=== PATIENT | female | born 1950 | race Caucasian/White ===

== ENCOUNTER 2020-04-15 21:42 | Inpatient (IN) | payer MEDICARE, OTHER ==
[~2020-04-15] VITALS: Ht 170.2 cm; Wt 107.0 kg
[~2020-04-15 21:42] MED LIST: ADULT LOW DOSE81 MG PO; ADVAIR 100-501 EACH INH; ALPRAZOLAM0.5 MG PO; ASPIRIN EC81 MG PO; ASPIRIN81 MG PO; ATORVASTATIN CA20 MG PO; CITALOPRAM HBR40 MG PO; CLEOCIN HCL300 MG PO; COREG 25MG TAB25 MG PO; CYANOCOBAL1000 MCG/1 INJ; DIAZEPAM2 MG PO; EFFEXOR XR75 MG PO; ELIQUIS 5 MG TAB5 MG PO; FEOSOL325 MG PO; FERROUS SULFAT325 M2 PO; FLONASE ALLER15.8 ML; FUROSEMIDE20 MG PO; IPRAT-ALBUT 0.5-3 ML NEB; JANUVIA 100 MG100 MG PO; K-DUR TAB 20 M20 MEQ PO; LANTUS SOL100 UNIT/1 SQ; LASIX 40 MG TAB40 MG PO; LASIX40 MG PO; LIPITOR TAB 2020 MG PO; LISINOPRIL20 MG PO; MIRALAX 119 GR119 GM PO; MIRTAZAPINE30 M1 PO; MYCOSTATIN100000 UTS PO; NORCO 5-325 TA1 EACH PO; OXYBUTYNIN CHLO15 MG PO; PANTOPRAZOLE SO40 MG PO; PRENATAL VITAM1 EAC8 PO; PRINIVIL20 MG PO; PROTONIX40 MG PO; RANITIDINE HCL300 MG PO; STOOL SOFTENER250 MG PO; TRAZODONE HCL150 MG PO; VICTOZA 1818 MG/3 ML SC; VITAMIN C 500500 MG PO; VITAMIN D250000 UNIT PO; ZYLOPRIM 100 M100 MG PO
[2020-04-15 22:43] LABS: HEMOGLOBIN 7.7 gm/dl (12.3-15.3); RED BLOOD COUNT 2.77 M/UL (4.00-5.10); WHITE BLOOD COUNT 12.1 K/UL (4.5-11.0)
[2020-04-15 23:11] LABS: BUN/CREATININE RATIO 31 (0-10)
[2020-04-16 00:27] LABS: HEMOGLOBIN 7.2 gm/dl (12.3-15.3); RED BLOOD COUNT 2.64 M/UL (4.00-5.10); WHITE BLOOD COUNT 10.8 K/UL (4.5-11.0)
[2020-04-16 04:17] LABS: RED BLOOD COUNT 2.45 M/UL (4.00-5.10); WHITE BLOOD COUNT 9.8 K/UL (4.5-11.0)
[2020-04-16 09:09] LABS: WHITE BLOOD COUNT 7.8 K/UL (4.5-11.0)
[2020-04-16 09:12] LABS: HEMOGLOBIN 6.1 gm/dl (12.3-15.3); RED BLOOD COUNT 2.19 M/UL (4.00-5.10)
[2020-04-16] MEDS ORDERED: LIPITOR20 MG PO (13:24)
[2020-04-16] MEDS ORDERED: FLONASE 0.05% N16 GM (13:26)
[2020-04-16] MEDS ORDERED: PRENATABS FA T1 EACH PO (13:27)
[2020-04-16] MEDS ORDERED: SINGULAIR10 MG PO (13:28)
[2020-04-16] MEDS ORDERED: CYMBALTA30 MG PO (13:39)
[2020-04-16] MEDS ORDERED: VITAMIN D250 MCG PO (16:37)
[2020-04-16] MEDS ORDERED: HYDRALAZINE HCL50 MG PO (20:26)
[2020-04-17 04:30] LABS: HEMOGLOBIN 8.4 gm/dl (12.3-15.3)
[2020-04-17 04:36] LABS: RED BLOOD COUNT 2.94 M/UL (4.00-5.10); WHITE BLOOD COUNT 11.5 K/UL (4.5-11.0)
[2020-04-18 13:54] LABS: HEMOGLOBIN 7.2 gm/dl (12.3-15.3); RED BLOOD COUNT 2.6 M/UL (4.00-5.10); WHITE BLOOD COUNT 10.3 K/UL (4.5-11.0)
[2020-04-19 05:20] LABS: HEMOGLOBIN 7.2 gm/dl (12.3-15.3); RED BLOOD COUNT 2.53 M/UL (4.00-5.10); WHITE BLOOD COUNT 9.5 K/UL (4.5-11.0)
[2020-04-20 06:57] LABS: HEMOGLOBIN 8.8 gm/dl (12.3-15.3); WHITE BLOOD COUNT 8.7 K/UL (4.5-11.0)
[2020-04-20 06:58] LABS: RED BLOOD COUNT 3.05 M/UL (4.00-5.10)
[2020-04-21 06:12] LABS: HEMOGLOBIN 8.6 gm/dl (12.3-15.3); RED BLOOD COUNT 2.99 M/UL (4.00-5.10); WHITE BLOOD COUNT 9.2 K/UL (4.5-11.0)
[2020-04-22] MEDS ORDERED: LASIX40 MG PO (17:46)
[2020-04-22] MEDS ORDERED: FERROUS SULFAT325 M2 PO (17:46)
--- NOTE | 2020-04-23 04:15 | NUR ---
1899- REPORT RECIEVED ON PATIENT. IN THE PROCESS OF ATTEMPTING TO DISCHARGE PATIENT PER MD ORDER I SPOKE WITH THE TO LET HIM KNOW PATIENT WOULD BE DISCHARGED THIS EVENING AND WILL BE TRANSPORTED HOME VIA AMBULANCE. PTS SPOUSE VERBALIZED UNDERSTANDING, ALTHOUGH WAS IN DISBELIEF THAT PATIENTS WOULD BE DISCHARGED THIS LATE IN THE AFTERNOON. BUT WAS AGREEABLE FOR HER TO COME HOME ANYHOW. 1909- SPOKE WITH -[facility] TO ARRANGE FOR TRANSPORT. 1929- RECIEVED A CALL FROM SISTER WHO BECAME VERY UPSET WITH NURSING STAFF WHICH SHE SPOKE VERY RUDLY AND BEGAN CURSING. STATED THAT SHE DID NOT NEED TO COME HOME, STATING THAT THE PATIENTS WAS THE ONLY ONE AT HOME AND HE HIMSELF COULD NOT CARE FOR HER BECAUSE HE WAS IN A WHEELCHAIR. I SPOKE WITH JAYSON BYRD AND NOTIFIED HER THAT THE PATIENTS FAMILY WAS VERY UPSET THAT SHE WAS GOING TO BE DISCHARGED AND THEY WERE UNDER THE IMPRESSION THAT THE PATIENT WOULD BE HOSPITALIZED FOR 3-4 MORE DAYS. JAYSON ADVISED ME TO NOTIFY DR HAYES AND LET HIM KNOW THE SITUATION. 1949- SPOKE WITH DR HAYES LETTING HIM KNOW THAT THE FAMILY WAS VERY UPSET THAT THE PATIENT WAS GOING TO BE DISCHARGED HOME, DR HAYES ASKED ME TO SPEAK WITH THE PATIENT BECAUSE HE HIMSELF SPOKE WITH THE PATIENT AND SHE STATED THAT SHE WOULD LIKE TO GO HOME. 1954-SPOKE WITH PATIENT SHE STATED THAT SHE WOULD LIKE TO GO HOME. 1999-NOTIFED DR HAYES THAT PATIENT WANTED TO GO HOME. 2004- SPOKE WITH THE PATIENTS WHO THEN SPOKE WITH THE PATIENT WANTING HER TO STAY IN THE HOSPITAL UNTIL ATLEAST TOMMOROW. 2009- PATIENT ADVISED ME THAT HER SISTERS WERE ON VACATION AND THAT HER DID NOT HAVE HELP AT HOME AT THIS TIME. 2014- DR HAYES NOTIFED OF ABOVE, DISCHARGE CANCELED AT THIS TIME UNTIL RE-EVAL OF DISPOSITION ON 04-23-2020.
[2020-04-23 10:57] LABS: HEMOGLOBIN 8.5 gm/dl (12.3-15.3); RED BLOOD COUNT 2.98 M/UL (4.00-5.10); WHITE BLOOD COUNT 9.5 K/UL (4.5-11.0)
[2020-04-25 06:37] LABS: HEMOGLOBIN 8.5 gm/dl (12.3-15.3); RED BLOOD COUNT 2.93 M/UL (4.00-5.10)
[2020-04-25 06:45] LABS: WHITE BLOOD COUNT 6.9 K/UL (4.5-11.0)
[2020-04-27 06:35] LABS: HEMOGLOBIN 8.2 gm/dl (12.3-15.3); WHITE BLOOD COUNT 6.4 K/UL (4.5-11.0)
[2020-05-16] MEDS ORDERED: ALPRAZOLAM0.5 MG PO (03:04)
== END 2020-04-27 17:15 | disposition home health service (06) | DRG 208 ==
LOC: ER1 21:42 → CCU 04-16 06:28 → CDU 04-16 06:28 → MED SURG 4 04-16 06:28 → CDU 04-16 15:55 → CCU 04-16 17:48 → MED SURG 4 04-18 11:38
PROVIDERS: Emergency Medicine; Internal Medicine; Internal Medicine Infectious Disease; ADMIT Internal Medicine
PROC: 0BH17EZ Insertion of Endotracheal Airway into Trachea, Via Natural or Artificial Opening (ICD-10-PCS; 2020-04-16)
PROC: 05HP33Z Insertion of Infusion Device into Right External Jugular Vein, Percutaneous Approach (ICD-10-PCS; 2020-04-16)
PROC: B543ZZA Ultrasonography of Right Jugular Veins, Guidance (ICD-10-PCS; 2020-04-16)
PROC: 5A1945Z Respiratory Ventilation, 24-96 Consecutive Hours (ICD-10-PCS; 2020-04-16)
PROC: 30233K1 Transfusion of Nonautologous Frozen Plasma into Peripheral Vein, Percutaneous Approach (ICD-10-PCS; principal; 2020-04-19)
DX: J96.01 Acute respiratory failure with hypoxia (principal); I50.33 Acute on chronic diastolic (congestive) heart failure; J18.9 Pneumonia, unspecified organism; I13.0 Hypertensive heart and chronic kidney disease with heart failure and stage 1 through stage 4 chronic kidney disease, or unspecified chronic kidney disease; I69.351 Hemiplegia and hemiparesis following cerebral infarction affecting right dominant side; I48.20 Chronic atrial fibrillation, unspecified; T82.838A Hemorrhage due to vascular prosthetic devices, implants and grafts, initial encounter; N17.9 Acute kidney failure, unspecified; D62 Acute posthemorrhagic anemia; I50.32 Chronic diastolic (congestive) heart failure; Z68.41 Body mass index [BMI] 40.0-44.9, adult; J96.02 Acute respiratory failure with hypercapnia; I16.0 Hypertensive urgency; Z20.828 Contact with and (suspected) exposure to other viral communicable diseases; I48.91 Unspecified atrial fibrillation; N18.9 Chronic kidney disease, unspecified; I49.5 Sick sinus syndrome; Z95.0 Presence of cardiac pacemaker; G47.33 Obstructive sleep apnea (adult) (pediatric); Z79.01 Long term (current) use of anticoagulants; Z85.3 Personal history of malignant neoplasm of breast; K21.9 Gastro-esophageal reflux disease without esophagitis; F41.9 Anxiety disorder, unspecified; F32.9 Major depressive disorder, single episode, unspecified; N18.30 Chronic kidney disease, stage 3 unspecified; Z90.710 Acquired absence of both cervix and uterus; Z88.1 Allergy status to other antibiotic agents; Z88.0 Allergy status to penicillin; Z88.8 Allergy status to other drugs, medicaments and biological substances; Z82.49 Family history of ischemic heart disease and other diseases of the circulatory system; D64.89 Other specified anemias; E86.0 Dehydration; Y82.8 Other medical devices associated with adverse incidents; I35.0 Nonrheumatic aortic (valve) stenosis; I48.0 Paroxysmal atrial fibrillation; I11.0 Hypertensive heart disease with heart failure; Z90.49 Acquired absence of other specified parts of digestive tract; I27.20 Pulmonary hypertension, unspecified; E66.01 Morbid (severe) obesity due to excess calories
CPT/HCPCS: ECHO; 31500; 36415; 36430; 36556; 36600; 51702; 71045; 80048; 80053; 82436; 82550; 82553; 82570; 82803; 82962; 83540; 83550; 83605; 83690; 83735; 83880; 84132; 84133; 84300; 84484; 85018; 85025; 85610; 85730; 86850; 86900; 86901; 86920; 86927; 92526; 92610; 93005; 93306; 94002; 94003; 94640; 94760; 96365; 96366; 96367; 96368; 96375; 96376; 97110; 97116; 97116-GP-CQ; 97162; 97166; 97530; 97530-GP-CQ; 99285; C9113; C9132; J1335; J1940; J2060; J2704; J3010; J3480; J7050; J7070; P9016; P9017; Q9965; U0002

== ENCOUNTER 2020-05-16 12:12 | Inpatient (IN) | payer OTHER ==
[~2020-05-16] VITALS: Ht 170.2 cm; Wt 99.8 kg
[~2020-05-16 12:12] MED LIST changes: +CYMBALTA30 MG PO; +FLONASE 0.05% N16 GM; +HYDRALAZINE HCL50 MG PO; +LIPITOR20 MG PO; +PRENATABS FA T1 EACH PO; +SINGULAIR10 MG PO; +VITAMIN D250 MCG PO
[2020-05-16 13:25] LABS: HEMOGLOBIN 9.6 gm/dl (12.3-15.3); RED BLOOD COUNT 3.36 M/UL (4.00-5.10); WHITE BLOOD COUNT 15.5 K/UL (4.5-11.0)
[2020-05-16 14:12] LABS: BUN/CREATININE RATIO 30 (0-10)
[2020-05-16] MEDS ORDERED: ZYLOPRIM 100 M100 MG PO (16:28)
[2020-05-16] MEDS ORDERED: K-DUR TAB 20 M20 MEQ PO (16:35)
[2020-05-16] MEDS ORDERED: LANTUS SOL100 UNIT/1 SQ (16:46)
[2020-05-16] MEDS ORDERED: ACETAMINOPHEN-1 EAC1 PO (16:47)
[2020-05-16] MEDS ORDERED: ELIQUIS5 MG PO (21:16)
[2020-05-17 01:52] LABS: HEMOGLOBIN 8.4 gm/dl (12.3-15.3); WHITE BLOOD COUNT 19.3 K/UL (4.5-11.0)
[2020-05-17 01:53] LABS: RED BLOOD COUNT 2.93 M/UL (4.00-5.10)
[2020-05-17 02:08] LABS: BUN/CREATININE RATIO 30 (0-10)
[2020-05-17 17:32] LABS: ACINETOBACTER BAUMANNII Not Detected (Negative); CANDIDA ALBICANS Not Detected (Negative); CANDIDA KRUSEI Not Detected (Negative); CANDIDA TROPICALIS Not Detected (Negative); ENTEROCOCCUS Not Detected (Negative); ESCHERICHIA COLI Not Detected (Negative); HAEMOPHILUS INFLUENZAE Not Detected (Negative); KLEBSIELLA OXYTOCA Not Detected (Negative); KLEBSIELLA PNEUMONIAE Not Detected (Negative); KPC-CARBAPENEM-RESISTANCE GENE Not Detected (Negative); PROTEUS Not Detected (Negative); PSEUDOMONAS AERUGINOSA Not Detected (Negative); SERRATIA MARCESANS Not Detected (Negative); STAPHYLOCOCCUS Not Detected (Negative); STAPHYLOCOCCUS AUREUS Not Detected (Negative); STREP AGALACTIAE (GROUP B) Not Detected (Negative); STREP PYOGENES (GROUP A) Not Detected (Negative); mecA (METHICILLIN RESIST GENE Not Detected (Negative); vanA/B (VANCOMYCIN RESIST GENE Not Detected (Negative)
[2020-05-17 18:56] LABS: STREPTOCOCCUS DETECTED (Negative)
== END 2020-05-17 14:54 | disposition short-term general hospital (02) | DRG 208 ==
LOC: ER1 12:12 → CDU 14:40 → CCU 18:44
PROVIDERS: Emergency Medicine; Physician Assistant; ADMIT Internal Medicine
PROC: 0BH17EZ Insertion of Endotracheal Airway into Trachea, Via Natural or Artificial Opening (ICD-10-PCS; principal; 2020-05-16)
PROC: 5A1935Z Respiratory Ventilation, Less than 24 Consecutive Hours (ICD-10-PCS; 2020-05-16)
DX: J96.02 Acute respiratory failure with hypercapnia (principal); I50.33 Acute on chronic diastolic (congestive) heart failure; J69.0 Pneumonitis due to inhalation of food and vomit; I13.0 Hypertensive heart and chronic kidney disease with heart failure and stage 1 through stage 4 chronic kidney disease, or unspecified chronic kidney disease; E66.2 Morbid (severe) obesity with alveolar hypoventilation; I48.20 Chronic atrial fibrillation, unspecified; I69.351 Hemiplegia and hemiparesis following cerebral infarction affecting right dominant side; Z20.822 Contact with and (suspected) exposure to COVID-19; J96.01 Acute respiratory failure with hypoxia; I35.0 Nonrheumatic aortic (valve) stenosis; N18.30 Chronic kidney disease, stage 3 unspecified; I49.5 Sick sinus syndrome; I27.20 Pulmonary hypertension, unspecified; E11.22 Type 2 diabetes mellitus with diabetic chronic kidney disease; D64.9 Anemia, unspecified; M10.9 Gout, unspecified; K21.9 Gastro-esophageal reflux disease without esophagitis; J44.9 Chronic obstructive pulmonary disease, unspecified; E78.5 Hyperlipidemia, unspecified; F41.9 Anxiety disorder, unspecified; F32.9 Major depressive disorder, single episode, unspecified; Z90.710 Acquired absence of both cervix and uterus; Z88.1 Allergy status to other antibiotic agents; Z68.34 Body mass index [BMI] 34.0-34.9, adult; Z95.0 Presence of cardiac pacemaker; Z85.3 Personal history of malignant neoplasm of breast; Z88.0 Allergy status to penicillin; Z88.8 Allergy status to other drugs, medicaments and biological substances; Z82.49 Family history of ischemic heart disease and other diseases of the circulatory system; Z99.81 Dependence on supplemental oxygen; Z80.9 Family history of malignant neoplasm, unspecified
CPT/HCPCS: 31500; 36415; 36600; 71045; 80053; 81001; 82550; 82553; 82803; 82962; 83605; 83735; 83874; 83880; 84484; 85025; 85610; 85730; 87040; 87070; 87077; 87150; 87186; 87205; 93005; 94002; 94003; 94664; 94760; 96365; 96366; 96367; 96372; 96375; 99285; J1205; J1335; J1644; J1940; J2250; J2543; J2704; J3010; J3370; J7030; U0002